=== PATIENT | female | born 1960 | race Two or more races ===

== ENCOUNTER → 2019-05-31 | Outpatient (CLI) | payer OTHER ==
--- NOTE | 2019-05-31 11:46 | RAD ---
Examination: DIGITAL DIAGNOSTIC RT, US GUID NDL PLACE/ASPI/BX History: Left breast speculated mass Comparison/Correlation: 05/03/2019 mammographic examination bilateral breast ultrasound performed at an outside facility Findings: Risks and benefits of ultrasound-guided core biopsy of the left breast with clip marker placement were discussed with the patient and informed consent was obtained. Cleansing with ChloraPrep was performed and sterile drapes were placed. Lateral approach was utilized. Sterile probe cover was utilized. Approximately 5 cc 1 percent lidocaine was administered from the lateral approach to the 9:00 mass and also medial to it under ultrasound guidance. Scalpel incision was made. Introducer was placed under ultrasound guidance. 12-gauge core biopsy was placed into the left breast mass in prefired state. 5 passes were made and specimens were placed in a formalin jar. No immediate complications. The patient tolerated the procedure well. Left MLO and CC images were then obtained demonstrating the biopsy clip marker at the left upper outer breast anteriorly. Soft tissue gas consistent with fatty procedure noted. Scattered fibroglandular breast tissue is seen. Impression: Successful biopsy of the left breast 9:00 region spiculated mass. Successful clip marker placement. Electronically signed by: Tj Bowman MD (05/31/2019 11:43 AM) [facility]
--- NOTE | 2019-06-01 18:06 | PATHOLOGY ---
[facility] Accession Number: [id number] . 01 Material submitted: . breast - LEFT BREAST MASS, 9:00. Modifiers: left, 9:00 . 01 Clinical history: . Left breast mass . 02 Diagnosis: Breast tissue, left breast 9:00, needle biopsies: - Focal fibrosis, fat necrosis, and foreign body giant cell reaction. . (JP:mm; 06/01/2019) [facility] 06/01/2019 1544 Local . 02 Comment: There is no evidence of malignancy. . (JP:mm; 06/01/2019) . 02 Electronically signed: . Minesh Hendrix MD, Pathologist NPI- [id number] . 01 Gross description: . The specimen is received in formalin, labeled "Erica Sanon, left breast 9:00". Received are multiple needle cores of fibrofatty tissue measuring 2.0 x 1.0 x 0.2 cm in aggregate dimensions. The specimen is submitted entirely in cassettes A1 through A3. The cold ischemic time is 3 minutes. The total formalin fixation time is 12 hours and 11 minutes. ([facility]; 05/31/2019) QA/QA 05/31/2019 1603 Local . 02 Pathologist provided ICD-10: N60.32, N64.1 . 02 CPT . 779799 Specimen Comment: A courtesy copy of this report has been sent to [phone], [phone] Specimen Comment: [id number] Specimen Comment: Report sent to and Performed at: [address], [place], [place] [id number] MD Clem Dixon MD Phone: [phone] Performed at: 02 [facility] [address] [place], [place] [id number] MD Minesh Hendrix MD Phone: [phone]
== END | disposition home or self-care (01) ==
LOC: US 08:25
PROVIDERS: ATTEND Surgery
DX: N63.20 Unspecified lump in the left breast, unspecified quadrant (principal); N60.32 Fibrosclerosis of left breast
CPT/HCPCS: 19083; 77065; 88305; C1713; 19081; 76942